=== PATIENT | female | born 1990 | race Caucasian/White ===

== ENCOUNTER → 2019-05-17 | Outpatient (REF) | payer OTHER ==
[2019-05-17 14:32] LABS: HEMATOCRIT 33.5 % (36.0-47.0); HEMOGLOBIN 11.5 g/dl (12.0-15.5); MEAN CORPUSCULAR HEMOGLOBIN 32.4 pg (27.0-33.0); MEAN CORPUSCULAR HGB CONC 34.3 g/dl (32.0-36.5); MEAN CORPUSCULAR VOLUME 94.4 fl (80.0-96.0); PLATELET COUNT, AUTOMATED 293 10^3/uL (150-450); RED BLOOD COUNT 3.55 10^6/uL (4.00-5.40); WHITE BLOOD COUNT 6.5 10^3/uL (4.0-10.0)
[2019-05-17 22:42] LABS: HCG, SERUM QUANTITATIVE 42412 MIU/ML
[2019-05-18 09:28] LABS: RUBELLA IgG QUALITATIVE IMMUNE (IMMUNE)
[2019-05-18 09:58] LABS: HEPATITIS C VIRUS ABY INDEX 0.1 INDEX (<0.8)
[2019-05-18 10:00] LABS: HIV 1&2 SCREEN CENTAUR NEGATIVE (NEGATIVE)
== END ==
LOC: M LAB REF 13:31
PROVIDERS: ATTEND Obstetrics & Gynecology
DX: O36.80X0 Pregnancy with inconclusive fetal viability, not applicable or unspecified (principal)

== ENCOUNTER → 2019-08-09 | Outpatient (CLI) | payer OTHER ==
[2019-08-09 16:15] LABS: HEMATOCRIT 31.8 % (36.0-47.0); HEMOGLOBIN 10.8 g/dl (12.0-15.5); MEAN CORPUSCULAR HEMOGLOBIN 33.4 pg (27.0-33.0); MEAN CORPUSCULAR VOLUME 98.5 fl (80.0-96.0); PLATELET COUNT, AUTOMATED 289 10^3/uL (150-450); RED BLOOD COUNT 3.23 10^6/uL (4.00-5.40); WHITE BLOOD COUNT 10.6 10^3/uL (4.0-10.0)
== END ==
LOC: M LAB 14:15
PROVIDERS: ATTEND Obstetrics & Gynecology
DX: Z34.02 Encounter for supervision of normal first pregnancy, second trimester (principal); Z36.89 Encounter for other specified antenatal screening

== ENCOUNTER → 2019-11-03 | Outpatient (REF) | payer OTHER | LOC: M LAB REF 16:22 | PROVIDERS: ATTEND Obstetrics & Gynecology | DX: Z36.89 Encounter for other specified antenatal screening (principal); Z3A.00 Weeks of gestation of pregnancy not specified ==

== ENCOUNTER 2019-11-25 09:58 | Inpatient (IN) | payer OTHER ==
[~2019-11-25] VITALS: Ht 167.6 cm; Wt 96.4 kg
[2019-11-25] MEDS ORDERED: PRENTAB9 PO (10:18)
[2019-11-25] MEDS ORDERED: PROZ10CA7 PO (10:18)
[2019-11-25 10:23] VITALS: BP 119/60
[2019-11-25] MEDS ORDERED: OXYTOCIN 30 UNITS IN 0.9% NaCl 500ML IV BAG (J2590) As Ordered ONE ×2 (10:44→13:57)
[2019-11-25 11:05] LABS: HEMATOCRIT 36.7 % (36.0-47.0); MEAN CORPUSCULAR HEMOGLOBIN 30.5 pg (27.0-33.0); MEAN CORPUSCULAR HGB CONC 32.7 g/dl (32.0-36.5); MEAN CORPUSCULAR VOLUME 93.4 fl (80.0-96.0); PLATELET COUNT, AUTOMATED 267 10^3/uL (150-450); RED BLOOD COUNT 3.93 10^6/uL (4.00-5.40); WHITE BLOOD COUNT 14.1 10^3/uL (4.0-10.0)
[2019-11-25] MEDS ORDERED: FENTANYL 2MCG/ML ROPIVACAINE 0.2% IN 0.9% NACL 100ML IVBAG As Ordered ONE (11:15)
[2019-11-25] MEDS ORDERED: LACTATED RINGER'S 1000 ML IV ONE (11:45)
[2019-11-25] MEDS ORDERED: LR 1,000 ML IV SCH (11:45)
[2019-11-25] MEDS ORDERED: ePHEDrine SULFATE 25 MG/5 ML(5MG/ML) SYRINGE IV PRN (12:30)
[2019-11-25] MEDS ORDERED: NALOXONE INJ 0.4MG/1ML VIAL (J2310 PER 1MG) IV PRN ×3 (12:30→14:35)
[2019-11-25] MEDS ORDERED: EPIDURAL COMMENT XX SCH (12:30)
[2019-11-25] MEDS ORDERED: FENTANYL/ROPIVACAINE/NACL BAG 100 ML EPIDURAL SCH (12:30)
[2019-11-25] MEDS ORDERED: ONDANSETRON 4MG/2ML VIAL IV PRN ×4 (12:30→15:00)
[2019-11-25] MEDS ORDERED: diphenhydrAMINE 50MG/ML VIAL (J1200) IV PRN ×3 (12:30→15:00)
[2019-11-25] MEDS ORDERED: REFRIGERATOR IV KEYS XX PRN (12:30)
[2019-11-25] MEDS ORDERED: EPIDURAL/PCA KEYS XX PRN (12:30)
[2019-11-25] MEDS ORDERED: LACTATED RINGER'S 1000 ML IV PRN (12:30)
[2019-11-25] MEDS ORDERED: OXYTOCIN DRIP 30 UNITS in IV 1 EA IV SCH ×2 (12:30→13:44)
[2019-11-25] MEDS ORDERED: ceFAZolin 2 GM/D5W 50 ML IV BAG (J0690 PER 500MG) As Ordered ONE (13:42)
[2019-11-25] MEDS ORDERED: BICITRA 30ML SOLN UDC As Ordered ONE (13:42)
[2019-11-25] MEDS ORDERED: LIDOCAINE 2% W/EPIN INJ 20ML **PRES FREE As Ordered ONE (13:44)
[2019-11-25] MEDS ORDERED: BICITRA 30ML SOLN UDC PO ONE (13:45)
[2019-11-25] MEDS ORDERED: RHOGAM 300 MCG (1500 IU) INJ (J2790) IM SCH (13:45)
[2019-11-25] MEDS ORDERED: MOM 30ML SUSPENSION UDC PO PRN (13:45)
[2019-11-25] MEDS ORDERED: ceFAZolin SOD 2 GM in IV 1 EA IV ONE (13:45)
[2019-11-25] MEDS ORDERED: MEASLES,MUMPS,RUBELLA VACCINE INJ (MMR-II) (90707) SC SCH (13:45)
[2019-11-25] MEDS ORDERED: KETOROLAC 60 MG/2 ML VIAL As Ordered ONE (14:04)
[2019-11-25] MEDS ORDERED: ONDANSETRON 4MG/2ML VIAL As Ordered ONE (14:04)
[2019-11-25] MEDS ORDERED: MORPHINE PRES-FREE INJ 10 MG/10 ML VIAL (J2274) As Ordered ONE (14:15)
[2019-11-25] MEDS ORDERED: NALBUPHINE HCL 10 MG/ML AMP (J2300) IV PRN (14:35)
[2019-11-25] MEDS ORDERED: METOCLOPRAMIDE INJ 10MG/2ML VIAL (J2765 PER 1) IV PRN (14:35)
[2019-11-25 14:52] LABS: CORD GAS ABE A -7.9; CORD GAS ABE V -8.7; CORD GAS HCO3 A 23.1 MEQ/L; CORD GAS O2 SAT A 17.7 %; CORD GAS O2 SAT V 72.9 %; CORD GAS PCO2 A 70.4 mmHg; CORD GAS PCO2 V 47.2 mmHg; CORD GAS PH A 7.133 UNITS; CORD GAS PH V 7.223 UNITS; CORD GAS PO2 A 15.5 mmHg; CORD GAS PO2 V 34.8 mmHg; CORD GAS SBC A 16.4 MEQ/L; CORD GAS SBC V 17.1 MEQ/L; CORD GAS TCO2 A 25.2 MEQ/L; CORD GAS TCO2 V 20.5 MEQ/L
[2019-11-25] MEDS ORDERED: HYDROMORPHONE HCL 0.5 MG/ 0.5 ML SYRINGE (J1170 PER 1) IV PRN (15:00)
[2019-11-25] MEDS ORDERED: oxyCODONE 5MG TAB PO PRN (15:00)
[2019-11-25] MEDS ORDERED: fentaNYL 100 MCG/2 ML INJECTION (J3010) IV PRN (15:00)
[2019-11-25] MEDS ORDERED: MEPERIDINE INJ 25 MG/ML VIAL (J2175) IV PRN (15:00)
--- NOTE | 2019-11-25 16:27 | HPE ---
DATE OF ADMISSION: 11/25/2019 Joseph is a 29-year-old female, 1, para 0, with an estimated date of confinement (EDC) of 11/25/2019, estimated gestational age (EGA) at 40 weeks gestation, who presented to labor and delivery with complaints of contractions every 3-4 minutes. While in labor and delivery she had spontaneous rupture of membranes. She was found to be fully dilated. No bleeding. Her initial heart rate tracing was a category 1 tracing. Her record reviewed, which was essentially unremarkable. She initiated care at approximately 12 weeks gestation. Her lab - blood type is O+, rubella immune, hepatitis negative, HIV negative, GC and chlamydia negative, 1-hour sugar testing was within normal limits. Her GBS is negative. PAST MEDICAL HISTORY: Significant for depression. PAST SURGICAL HISTORY: Hand surgery, wisdom tooth extraction. SOCIAL HISTORY: She denies any alcohol, drug or cigarette smoking. REVIEW OF SYSTEMS: Unremarkable. FAMILY HISTORY: Significant for depression and prostate cancer. MEDICATIONS: - vitamin - Prozac 10 mg ALLERGIES: NO KNOWN DRUG ALLERGIES. PHYSICAL EXAMINATION: Normal-appearing female, in no acute distress. Abdomen: Soft, nontender, nondistended. Extremities: No clubbing, cyanosis, or edema. Vaginal Exam: Fully dilated, grossly ruptured membranes, fetus at 0 station in a vertex position. Category 1 tracing. ASSESSMENT: Intrauterine at 40 weeks gestation in second phase of labor with spontaneous rupture of membrane. PLAN: Admit to labor and delivery. Routine labs sent. Awaiting delivery.
[2019-11-25 17:18] VITALS: BP 137/78
[2019-11-25 17:49] VITALS: BP 139/76
[2019-11-25 19:30] VITALS: BP 130/70
[2019-11-25 20:30] VITALS: BP 132/73
[2019-11-25] MEDS: DOCUSATE SODIUM 100 MG CAP PO SCH (20:38)
[2019-11-25] MEDS: KETOROLAC 30 MG/ML 1ML VIAL IV SCH (20:38)
[2019-11-25 22:15] VITALS: BP 135/73
[2019-11-26 01:25] VITALS: BP 131/76
[2019-11-26] MEDS: KETOROLAC 30 MG/ML 1ML VIAL IV SCH ×2 (01:27→07:51)
[2019-11-26] MEDS: PERCOCET 5MG/325MG TAB PO PRN ×3 (05:49→21:50)
[2019-11-26 06:05] VITALS: BP 113/66
[2019-11-26 07:15] LABS: HEMATOCRIT 28.7 % (36.0-47.0); MEAN CORPUSCULAR HEMOGLOBIN 31.7 pg (27.0-33.0); MEAN CORPUSCULAR HGB CONC 33.4 g/dl (32.0-36.5); MEAN CORPUSCULAR VOLUME 94.7 fl (80.0-96.0); PLATELET COUNT, AUTOMATED 201 10^3/uL (150-450); RED BLOOD COUNT 3.03 10^6/uL (4.00-5.40); WHITE BLOOD COUNT 14.6 10^3/uL (4.0-10.0)
[2019-11-26 07:21] LABS: HEMOGLOBIN 9.6 g/dl (12.0-15.5)
--- NOTE | 2019-11-26 07:35 | IPNPDOC ---
Text Note Date of Service The patient was seen on 11/26/19. NOTE PO #1 Feels well. Adequate pain management. OOB. Voiding VSS, afebrile, normotensive Breasts soft Fundus firm, NT Dressing intact Lochia rubra scant without odor PO #1 Routine care. Consider discharge in am VS,Fishbone, I+O VS, Fishbone, I+O Laboratory Tests 11/25/19 10:45 11/26/19 06:58 Vital Signs Date Time Temp Pulse Resp B/P (MAP) Pulse Ox O2 Delivery O2 Flow Rate FiO2 11/26/19 06:05 97.4 94 20 113/66 (82) 100 Room Air I&O- Last 24 Hours up to 6 AM 11/26/19 06:00 Intake Total 1860 ml Output Total 2900 ml Balance -1040 ml Chrissy Lakhani CNM November 26, 2019 07:35
[2019-11-26] MEDS: PRENATAL VITAMINS CHEWABLE TABLET PO SCH (07:50)
[2019-11-26] MEDS: DOCUSATE SODIUM 100 MG CAP PO SCH ×2 (07:51→21:50)
[2019-11-26] MEDS ORDERED: BOOSTRIX/ADACEL VACCINE (DIPHTH/PERTUSS/ACELL/TETANUS) 0.5ML SYR IM ONE (09:00)
[2019-11-26 10:14] VITALS: BP 112/56
[2019-11-26 14:01] VITALS: BP 110/59
[2019-11-26] MEDS: IBUPROFEN 800 MG TAB PO SCH (16:01)
[2019-11-26 18:02] VITALS: BP 111/67
[2019-11-27] MEDS: IBUPROFEN 800 MG TAB PO SCH ×2 (01:22→07:51)
[2019-11-27] MEDS: PERCOCET 5MG/325MG TAB PO PRN (02:48)
[2019-11-27 05:51] VITALS: BP 102/64
[2019-11-27] MEDS: DOCUSATE SODIUM 100 MG CAP PO SCH (07:51)
[2019-11-27] MEDS: PRENATAL VITAMINS CHEWABLE TABLET PO SCH (07:51)
[2019-11-27] MEDS ORDERED: IBUP80TA PO (09:36)
[2019-11-27] MEDS ORDERED: PERCOCET PO (09:36)
--- NOTE | 2019-11-29 16:59 | RO ---
DATE OF PROCEDURE: 11/25/2019 Joseph is a 29-year-old female 1, para 0 who was admitted at 40 weeks gestation after presenting fully dilated with spontaneous rupture of membranes. She pushed for over 3 hours with an arrest of descent and nonreassuring heart rate tracing. After extensive counseling with the patient, a decision was made to proceed with delivery via primary section. PREOPERATIVE DIAGNOSES: 1. Term . 2. Arrest of descent. 3. Nonreassuring heart rate tracing. POSTOPERATIVE DIAGNOSES: 1. Term . 2. Arrest of descent. 3. Nonreassuring heart rate tracing 4. Direct occiput posterior (OP). 5. macrosomia. PROCEDURE: Primary section. ANESTHESIA: Epidural. SURGEON: Dr. Ballard COMPLICATIONS: None. ESTIMATED BLOOD LOSS: 500 mL. FINDINGS: Live female infant in occiput posterior position. scores 9 and 9. weight 9 pounds 2 ounces. Placenta delivered manually intact. Three-vessel cord. DESCRIPTION OF PROCEDURE: After obtaining informed consent, the patient was taken to the operating room where epidural anesthetic was found to be adequate. She was then draped and prepped in the usual sterile fashion in the supine position. At this point, a Pfannenstiel incision was made. This was carried down to the fascia. Fascia was incised in midline fashion and carried through laterally. Superior aspect of the fascia were then grasped with two Quoc clamps, tented off and dissected off the rectus muscles sharply. The inferior aspect was dissected off in a similar fashion. Rectus muscles midline fashion. Peritoneum identified. Peritoneal cavity entered bluntly. Superior and inferior dissection of the peritoneum was then done with good visualization of the bladder. At this point, a Mobius skin retractor was placed, a low transverse uterine incision was made. was delivered in atraumatic fashion, nose and mouth bulb suctioned. Cord doubly clamped and cut and was handed over to the awaiting warmer. Cord blood and cord gas were sent. Placenta removed manually. Uterus cleared of all clot and debris, and uterine incision was then repaired in two separate layers of #0 Vicryl suture. Pelvis copiously irrigated with normal saline and suctioned out. Attention turned to the peritoneum which was closed in a running fashion using #2-0 Vicryl. Fascia closed in two separate segments of #0 Vicryl suture. All superficial bleeders were coagulated, and the skin was reapproximated in a subcuticular fashion using #3-0 Vicryl on a Stefano. Steri-Strips placed. The patient tolerated procedure well. She was then transferred to the recovery room in stable condition.
== END 2019-11-27 11:45 | disposition home or self-care (01) | DRG 788 ==
LOC: M LDO 09:58 → M LDI 10:31 → M OBS 17:03
PROVIDERS: ADMIT Obstetrics & Gynecology; ATTEND Obstetrics & Gynecology
PROC: 10D00Z1 Extraction of Products of Conception, Low, Open Approach (ICD-10-PCS; principal; 2019-11-25 14:04)
DX: O48.0 Post-term pregnancy (principal); Z37.0 Single live birth; Z3A.40 40 weeks gestation of pregnancy; O76 Abnormality in fetal heart rate and rhythm complicating labor and delivery

== ENCOUNTER → 2022-05-01 | Outpatient (REF) | payer OTHER ==
[~2022-05-01] MED LIST: IBUP80TA PO; PERCOCET PO; PRENTAB9 PO; PROZ10CA7 PO
[2022-05-01 19:47] LABS: HCG, SERUM QUANTITATIVE 61333 MIU/ML; HEPATITIS B SURFACE ANTIGEN NEGATIVE (NEGATIVE); HEPATITIS C VIRUS ABY INDEX < 0.0 INDEX (<0.8); HIV 1&2 SCREEN CENTAUR NEGATIVE (NEGATIVE)
== END ==
LOC: M LAB REF 16:28
PROVIDERS: ATTEND Obstetrics & Gynecology
DX: Z32.01 Encounter for pregnancy test, result positive (principal); O36.80X0 Pregnancy with inconclusive fetal viability, not applicable or unspecified

== ENCOUNTER → 2022-05-15 | Outpatient (CLI) | payer OTHER ==
[2022-05-15 09:34] LABS: BASO % 0.4 % (0.0-1.0); EOS # 0.1 10^3/uL (0.0-0.5); EOS % 1.1 % (0.0-3.0); HEMOGLOBIN 11.8 g/dl (12.0-15.5); LYMPH % 24.2 % (24.0-44.0); MEAN CORPUSCULAR HEMOGLOBIN 31.9 pg (27.0-33.0); MEAN CORPUSCULAR HGB CONC 33.7 g/dl (32.0-36.5); MEAN CORPUSCULAR VOLUME 94.6 fl (80.0-96.0); MONO # 0.5 10^3/uL (0.0-0.8); MONO % 5.7 % (2.0-8.0); NEUTROPHILS # 5.6 10^3/uL (1.5-8.5); NEUTROPHILS % 68.2 % (36.0-66.0); PLATELET COUNT, AUTOMATED 289 10^3/uL (150-450); WHITE BLOOD COUNT 8.2 10^3/uL (4.0-10.0)
== END ==
LOC: M RAD 08:12
PROVIDERS: ATTEND Obstetrics & Gynecology
DX: Z36.89 Encounter for other specified antenatal screening (principal); Z3A.09 9 weeks gestation of pregnancy

== ENCOUNTER → 2022-07-23 | Outpatient (CLI) | payer OTHER | LOC: M RAD 11:06 | PROVIDERS: ATTEND Obstetrics & Gynecology | DX: O32.1XX0 Maternal care for breech presentation, not applicable or unspecified (principal); Z3A.19 19 weeks gestation of pregnancy ==

== ENCOUNTER → 2022-09-24 | Outpatient (CLI) | payer OTHER ==
[2022-09-24 11:13] LABS: HEMATOCRIT 33.8 % (36.0-47.0); HEMOGLOBIN 11.5 g/dl (12.0-15.5); MEAN CORPUSCULAR VOLUME 96.8 fl (80.0-96.0); PLATELET COUNT, AUTOMATED 238 10^3/uL (150-450); RED BLOOD COUNT 3.49 10^6/uL (4.00-5.40); WHITE BLOOD COUNT 8.8 10^3/uL (4.0-10.0)
== END ==
LOC: M LAB 09:44
PROVIDERS: ATTEND Obstetrics & Gynecology
DX: Z34.82 Encounter for supervision of other normal pregnancy, second trimester (principal)

== ENCOUNTER → 2022-11-12 | Outpatient (REF) | payer OTHER | LOC: M LAB REF 16:21 | PROVIDERS: ATTEND Obstetrics & Gynecology | DX: Z34.83 Encounter for supervision of other normal pregnancy, third trimester (principal); Z36.85 Encounter for antenatal screening for Streptococcus B ==

== ENCOUNTER 2022-12-09 05:32 | Inpatient (IN) | payer OTHER ==
[~2022-12-09] VITALS: Ht 167.6 cm; Wt 91.3 kg
[2022-12-09] VITALS (9 sets, daily range): BP systolic 109–144; BP diastolic 59–86
[~2022-12-09 05:32] MED LIST changes: +BUPR150T12 PO
[2022-12-09] MEDS ORDERED: BICITRA 30ML SOLN UDC PO ONE (05:50)
[2022-12-09] MEDS ORDERED: LR 1,000 ML IV SCH ×2 (05:50→15:00)
[2022-12-09] MEDS ORDERED: LACTATED RINGER'S 1000 ML IV STA (05:50)
[2022-12-09] MEDS ORDERED: ceFAZolin SOD 2 GM in IV 1 EA IV ONE (05:50)
[2022-12-09 07:00] LABS: HEMATOCRIT 34.1 % (36.0-47.0); HEMOGLOBIN 11.5 g/dl (12.0-15.5); MEAN CORPUSCULAR HEMOGLOBIN 32.3 pg (27.0-33.0); MEAN CORPUSCULAR HGB CONC 33.7 g/dl (32.0-36.5); MEAN CORPUSCULAR VOLUME 95.8 fl (80.0-96.0); PLATELET COUNT, AUTOMATED 228 10^3/uL (150-450); RED BLOOD COUNT 3.56 10^6/uL (4.00-5.40); WHITE BLOOD COUNT 8.4 10^3/uL (4.0-10.0)
[2022-12-09] MEDS ORDERED: RHOGAM 300MCG (1500IU) INJ IM SCH (08:20)
[2022-12-09] MEDS ORDERED: OXYTOCIN DRIP 30 UNITS in IV 1 EA IV SCH (08:20)
[2022-12-09] MEDS ORDERED: ONDANSETRON 4MG 2ML VIAL As Ordered ONE (08:57)
[2022-12-09] MEDS ORDERED: MORPHINE PRES-FREE INJ 10 MG/10 ML VIAL As Ordered ONE (08:57)
[2022-12-09] MEDS ORDERED: ACETAMINOPHEN 1000MG 100ML IV BAG As Ordered ONE (08:57)
[2022-12-09] MEDS ORDERED: KETOROLAC 60MG 2ML VIAL As Ordered ONE (08:57)
[2022-12-09] MEDS ORDERED: OXYTOCIN 30UNITS IN 0.9% NaCl 500ML IV BAG As Ordered ONE ×3 (08:57→10:05)
[2022-12-09 08:59] LABS: CORD GAS ABE A -2.9; CORD GAS HCO3 A 24.2 MMOL/L; CORD GAS O2 SAT A 43.3 %; CORD GAS PCO2 A 50.4 mmHg; CORD GAS PH A 7.299 UNITS; CORD GAS PO2 A 19.6 mmHg; CORD GAS SBC A 20.6 MMOL/L; CORD GAS TCO2 A 25.7 MMOL/L
[2022-12-09 09:03] LABS: CORD GAS ABE V -3.3; CORD GAS HCO3 V 21.4 MMOL/L; CORD GAS O2 SAT V 82.5 %; CORD GAS PH V 7.369 UNITS; CORD GAS SBC V 21.3 MMOL/L; CORD GAS TCO2 V 22.6 MMOL/L
[2022-12-09] MEDS ORDERED: METOCLOPRAMIDE INJ 10MG/2ML VIAL IV PRN (09:30)
[2022-12-09] MEDS ORDERED: NALOXONE INJ 0.4MG/1ML VIAL IV PRN ×2 (09:30)
[2022-12-09] MEDS ORDERED: fentaNYL 100 MCG/2 ML INJECTION IV PRN (09:30)
[2022-12-09] MEDS ORDERED: MEPERIDINE 25 MG/ML 1ML VIAL IV PRN (09:30)
[2022-12-09] MEDS ORDERED: MORPHINE 2 MG/ML 1ML VIAL IV PRN (09:30)
[2022-12-09] MEDS ORDERED: ONDANSETRON 4MG 2ML VIAL IV PRN (09:30)
[2022-12-09] MEDS ORDERED: **NOTE PATIENT COMMENT** MISC XX SCH (09:30)
[2022-12-09] MEDS ORDERED: diphenhydrAMINE 50MG/ML VIAL IV PRN (09:30)
[2022-12-09] MEDS: SLF 3 ML SYR IV SCH ×3 (09:30→18:11)
[2022-12-09] MEDS: DOCUSATE SODIUM 100MG CAPSULE PO SCH ×2 (14:58→20:46)
[2022-12-09] MEDS: PRENATAL VITAMINS CHEWABLE TABLET PO SCH (14:58)
[2022-12-09] MEDS: KETOROLAC 30 MG/ML 1ML VIAL IV SCH ×2 (15:42→20:46)
[2022-12-09] MEDS: FLUoxetine 20MG CAP PO SCH (20:46)
[2022-12-09] MEDS: buPROPion **XL** TABLET 150MG (WELLBUTRIN XL) PO SCH (20:46)
[2022-12-09] MEDS ORDERED: buPROPion 75 MG TAB PO SCH (21:00)
[2022-12-09] MEDS ORDERED: buPROPion **SR TABLET** (ZYBAN) 150MG PO SCH (21:00)
[2022-12-10 02:00] VITALS: BP 109/63
[2022-12-10] MEDS: SLF 3 ML SYR IV SCH (03:09)
[2022-12-10] MEDS: KETOROLAC 30 MG/ML 1ML VIAL IV SCH (03:09)
[2022-12-10 06:00] VITALS: BP 118/68
[2022-12-10] MEDS: PRENATAL VITAMINS CHEWABLE TABLET PO SCH (07:18)
[2022-12-10] MEDS: DOCUSATE SODIUM 100MG CAPSULE PO SCH ×2 (07:18→20:21)
[2022-12-10] MEDS: SIMETHICONE 80MG CHEW TAB PO PRN ×3 (07:18→20:21)
[2022-12-10] MEDS: PERCOCET 5MG/325MG TAB PO PRN ×3 (07:19→20:22)
[2022-12-10 07:46] LABS: HEMATOCRIT 30.1 % (36.0-47.0); MEAN CORPUSCULAR HEMOGLOBIN 32.4 pg (27.0-33.0); MEAN CORPUSCULAR HGB CONC 33.2 g/dl (32.0-36.5); MEAN CORPUSCULAR VOLUME 97.4 fl (80.0-96.0); PLATELET COUNT, AUTOMATED 173 10^3/uL (150-450); RED BLOOD COUNT 3.09 10^6/uL (4.00-5.40); WHITE BLOOD COUNT 8.9 10^3/uL (4.0-10.0)
[2022-12-10 10:00] VITALS: BP 105/60
[2022-12-10] MEDS: IBUPROFEN 800 MG TAB PO SCH ×2 (11:27→18:45)
[2022-12-10 17:58] VITALS: BP 114/69
[2022-12-10] MEDS: FLUoxetine 20MG CAP PO SCH (20:21)
[2022-12-10 22:00] VITALS: BP 126/70
[2022-12-10] MEDS: buPROPion **XL** TABLET 150MG (WELLBUTRIN XL) PO SCH (22:01)
[2022-12-11 02:00] VITALS: BP 122/66
[2022-12-11] MEDS: IBUPROFEN 800 MG TAB PO SCH ×2 (03:08→11:27)
[2022-12-11 06:00] VITALS: BP 148/91
[2022-12-11] MEDS: SIMETHICONE 80MG CHEW TAB PO PRN ×2 (06:00→09:16)
[2022-12-11] MEDS: PERCOCET 5MG/325MG TAB PO PRN (06:01)
[2022-12-11] MEDS ORDERED: MEASLES,MUMPS,RUBELLA VACCINE INJ (MMR-II) SC.IMMUN ONE (09:00)
[2022-12-11] MEDS: PRENATAL VITAMINS CHEWABLE TABLET PO SCH (09:16)
[2022-12-11] MEDS: DOCUSATE SODIUM 100MG CAPSULE PO SCH (09:16)
[2022-12-11] MEDS ORDERED: PERCOCET 5MG/325MG TAB PO PRN (09:45)
[2022-12-11 09:48] VITALS: BP 139/91
[2022-12-11] MEDS ORDERED: COLA100C5 PO (11:15)
[2022-12-11] MEDS ORDERED: PERCOCET PO (11:15)
[2022-12-11] MEDS ORDERED: IBUP80TA PO (11:15)
== END 2022-12-11 12:09 | disposition home or self-care (01) | DRG 785 ==
LOC: M LDI 05:32 → M OBS 10:41
PROVIDERS: ADMIT Obstetrics & Gynecology; ATTEND Obstetrics & Gynecology
PROC: 0UT70ZZ Resection of Bilateral Fallopian Tubes, Open Approach (ICD-10-PCS; 2022-12-09)
PROC: 10D00Z1 Extraction of Products of Conception, Low, Open Approach (ICD-10-PCS; principal; 2022-12-09 07:30)
DX: O34.211 Maternal care for low transverse scar from previous cesarean delivery (principal); Z37.0 Single live birth; Z30.2 Encounter for sterilization; Z3A.39 39 weeks gestation of pregnancy